=== PATIENT | male | born 1960 | race Caucasian/White ===

== ENCOUNTER 2016-07-05 11:25 | Emergency (ER) | payer OTHER ==
[2016-07-05 11:33] VITALS: BP 130/71; PULSE 75; RESP 18; TEMP 97.8
[2016-07-05] MEDS ORDERED: DIPH,PERTUS(ACELL)TETVAC-LF 0.5 ML VIAL IM ONE (11:47)
--- NOTE | 2016-07-05 11:57 | ED ---
Upper Extremity HPI - General Chief Complaint: Extremity Injury, Upper Stated Complaint: RT INDEX FINGER SWELLING Time Seen by Provider: 07/05/16 11:35 Source: patient, RN notes reviewed Mode of arrival: ambulatory Limitations: no limitations - History of Present Illness Initial Comments: 56-year-old male present emergency Department chief complaint swelling to his right hand index finger. Patient states started yesterday. Patient states that he was working on the garage retention and states that he brushes medical against some metal. Patient states that discharge swelling up. Patient states are slightly decreased range of motion secondary to swelling. Patient doesn't paresthesias. Patient is unsure when his last tetanus was. Patient has fever, chills. Patient denies any pain that radiates into his hand or into his arm. - Related Data Previous Rx's Medication Instructions Recorded Cephalexin [Keflex] 500 mg PO Q6HR #40 cap 07/05/16 Allergies Allergy/AdvReac Type Severity Reaction Status Date / Time No Known Allergies Allergy Verified 07/05/16 12:02 Review of Systems ROS Statement: Those systems with pertinent positive or pertinent negative responses have been documented in the HPI. ROS Other: All systems not noted in ROS Statement are negative. Past Medical History Past Medical History: No Reported History History of Any Multi-Drug Resistant Organisms: None Reported Past Surgical History: No Surgical Hx Reported Past Psychological History: Depression Smoking Status: Current every day smoker Past Alcohol Use History: None Reported Past Drug Use History: None Reported General Exam Limitations: no limitations General appearance: alert, in no apparent distress Respiratory exam: Present: normal lung sounds bilaterally. Absent: respiratory distress, wheezes, rales, rhonchi, stridor Cardiovascular Exam: Present: regular rate, normal rhythm, normal heart sounds. Absent: systolic murmur, diastolic murmur, rubs, gallop, clicks Extremities exam: Present: other (Right hand second digit on the dorsal aspect there is no open wound over the PIP patient does have slight decreased range of motion but has moderate swelling noted to the digit there is no erythema extending past the MCP patient's Refill less than 2 seconds.) Course Vital Signs 07/05/16 11:31 Temperature 97.8 F Pulse Rate 75 Respiratory 18 Rate Blood Pressure 130/71 O2 Sat by Pulse 99 Oximetry Medical Decision Making - Medical Decision Making 56-year-old male presented for right finger swelling. Patient appears to have sialitis of his finger there is no drainable abscess. Patient was started on antibiotics and advised follow-up within 24 hours for recheck. Symptoms worsen needs to return the emergency Department. There is no evidence of osteomyelitis. Patient will be discharged Disposition Clinical Impression: Cellulitis of finger Disposition: HOME SELF-CARE Condition: Stable Instructions: Cellulitis (ED) Additional Instructions: Please return to the Emergency Department if symptoms worsen or any other concerns. Prescriptions: Cephalexin [Keflex] 500 mg PO Q6HR #40 cap Time of Disposition: 12:12
--- NOTE | 2016-07-05 12:07 | XR ---
EXAMINATION TYPE: XR finger RT DATE OF EXAM: 07/05/2016 12:01 PM COMPARISON: NONE HISTORY: Pain second digit TECHNIQUE: Three views are submitted. FINDINGS: The osseous structures are intact. The joint spaces are preserved and there is no acute fracture or dislocation. Narrowing of the PIP and MCP joints noted. Suggestion of a marginal erosion involving t he MCP joint. Tiny density within the palmar aspect of the soft tissues just proximal to the DIP join t may represent foreign body. IMPRESSION: 1. No definite acute fracture or dislocation if symptoms persist, follow-up study in 7 to 10 days wo uld be suggested 2. Arthropathy 3. Probably tiny subcutaneous foreign body within the palmar soft tissues just proximal to the DIP atilio int
== END 2016-07-05 12:28 | disposition home or self-care (01) ==
LOC: EC 11:25
DX: L03.011 Cellulitis of right finger (principal); F17.200 Nicotine dependence, unspecified, uncomplicated; Z23 Encounter for immunization
CPT/HCPCS: 90471; 90715; 99283

== ENCOUNTER → 2017-09-27 | Outpatient (CLI) | payer OTHER ==
--- NOTE | 2017-09-27 13:02 | ECHOS ---
STRESS ECHOCARDIOGRAM DATE OF SERVICE: 09/27/2017 INDICATIONS: Chest pain. MEDICATIONS: Celexa. BASELINE HEART RATE: 51 BASELINE BLOOD PRESSURE: 130/79 MAXIMUM HEART RATE: 141 MAXIMUM BLOOD PRESSURE: 168/82 85% MPHR: 140 100% MPHR: 165 METS: 13.3 MAXIMUM STAGE REACHED: IV TOTAL EXERCISE TIME: 12:52 CLINICAL INFORMATION: Baseline rhythm is sinus mechanism, rate 51, normal axis and intervals. Normal electrocardiogram. Baseline blood pressure 130/79 mmHg. Patient exercised on Young protocol for 12 minute 52 seconds achieving peak rate at 141 beats per minute, which is equal to 85% maximum predicted heart rate. Peak blood pressure 168/82 mmHg. Test was terminated secondary to fatigue. There was no chest pain. Electrocardiograph monitoring revealed no evidence of diagnostic ischemic ST deviation. There were significant artifacts on the EKG. Rare PVCs were noted. Baseline echocardiogram revealed normal wall motion. At peak exercise, there was normal wall motion augmentation with no hypokinesis or dyskinesis. CONCLUSION: 1. Excellent exercise tolerance with rare PVCs and normal electrocardiograph response to exercise. 2. Normal stress echocardiogram with no evidence of stress induced ischemia. MMODL / IJN: [id number] / CASSIE
== END | disposition home or self-care (01) ==
LOC: RADNMMAIN 08:49
PROVIDERS: ATTEND Family Medicine
DX: R07.9 Chest pain, unspecified (principal)
CPT/HCPCS: 93351